=== PATIENT | male | born 1990 | race Two or more races ===

== ENCOUNTER 2017-11-02 02:44 | Emergency (ER) | payer SELFPAY ==
[~2017-11-02] VITALS: Ht 170.2 cm; Wt 82.9 kg
[2017-11-02 02:53] VITALS: BP 163/104
[2017-11-02 03:35] LABS: HEMATOCRIT 45.1 % (38.0-50.0); MCH 31.7 PG (29.0-34.0); MCHC 35.5 G/DL (30.0-36.0); MCV 89.3 FL (86-99); PLATELET COUNT 315 K/uL (156-360); RBC DIS.WIDTH-CV 12.7 % (11.8-14.6); RBC DIS.WIDTH-SD 41.5 % (39-53); RED BLOOD COUNT 5.05 M/uL (4.00-5.50); WHITE BLOOD COUNT 6.5 K/uL (4.1-10.2)
[2017-11-02 03:46] LABS: CHLORIDE 106 mEq/L (99-109); POTASSIUM 4.2 mEq/L (3.7-5.4); SODIUM 143 mEq/L (136-147)
[2017-11-02 03:47] LABS: GLUCOSE 98 mg/dL (70-99)
[2017-11-02 03:51] LABS: CREATININE 1.1 mg/dL (0.6-1.3)
[2017-11-02 03:52] LABS: GFR ESTIMATE (CALCULATED) > 59 mL/min/ (58.99-99999); UREA NITROGEN (BUN) 13 mg/dL (9-23)
[2017-11-02 04:42] LABS: TOTAL PROTEIN 7.9 g/dL (6.4-8.3)
[2017-11-02 04:44] LABS: TOTAL BILIRUBIN 0.4 mg/dL (0.0-1.0)
[2017-11-02 04:45] LABS: ALKALINE PHOSPHATASE 104 IU/L (3-129)
[2017-11-02 04:47] LABS: AST (GOT) 25 IU/L (2-34); DIRECT BILIRUBIN 0.1 mg/dL (0.0-0.3)
[2017-11-02 04:48] LABS: ALT (GPT) 45 IU/L (3-49)
== END 2017-11-02 04:42 | disposition left against medical advice (07) ==
LOC: EME 02:44
DX: K92.0 Hematemesis (principal); Z53.21 Procedure and treatment not carried out due to patient leaving prior to being seen by health care provider
CPT/HCPCS: 80048; 80076; 85027; 86850; 86900; 86901